=== PATIENT | female | born 1975 | race Hispanic/Latino ===

== ENCOUNTER 2017-11-23 11:46 | Emergency (ER) | payer MEDICARE, OTHER ==
[2017-11-23] MEDS ORDERED: OXYMETAZOLINE HCL SPRAY 15 ML BOTTLE ONE (12:00)
== END 2017-11-23 13:06 | disposition home or self-care (01) ==
LOC: EDH 11:46
DX: R04.0 Epistaxis (principal); I10 Essential (primary) hypertension; Z88.6 Allergy status to analgesic agent